=== PATIENT | female | born 1965 | race Caucasian/White ===

== ENCOUNTER → 2017-05-15 | Outpatient (CLI) | payer OTHER ==
[~2017-05-15] MED LIST: ACETAMINOPHEN325 M1; ACETAMINOPHEN325 M1 PO; ACID CONTROL20 MG; BACTRIM; BACTRIM DS TAB1 EACH PO; BENADRY; BENZTROPINE MES1 MG; BENZTROPINE MES1 MG PO; BISMATROL; CHLORPROMAZINE50 M2 PO; COLACE100 MG PO; DARVOCET-N 1001 EACH PO; DEPAKOTE 250MG250 M1 PO; DEPAKOTE ER250 MG PO; DEPAKOTE250 MG PO; DESOXIMETASONE; DIAZEPAM 10 MG10 M1 OR; FAMOTIDINE20 MG PO; LATUDA40 MG; LOPERAMIDE; METRONIDAZOLE; MOM; MYLANTA 12 OZ355 M1 GT; NAPROSYN500 MG PO; NEXIUM40 MG PO; NORCO 5-325 TA1 EACH PO; OXCARBAZEPINE300 M1 PO; OXCARBAZEPINE600 MG PO; SEROQUEL 100 M100 MG PO; SEROQUEL XR 30300 M1 PO; SEROQUEL XR150 M1 PO; SEROQUEL XR200 MG PO; SERTRALINE HCL100 MG PO; TRILEPTAL 300300 MG PO; TRILEPTAL600 MG PO; TRIPLE ANTIBIO1 EACH TP; TYLENOL EX-STR500 M2 PO; VALIUM10 MG; ZOLOFT100 MG; [UNRECOGNIZED DRUG - OTHER]; [UNRECOGNIZED DRUG - OTHER] MM
== END ==
LOC: RAD 02:57
DX: Z12.31 Encounter for screening mammogram for malignant neoplasm of breast (principal)